=== PATIENT | male | born 1960 | race Caucasian/White ===

== ENCOUNTER 2021-11-06 14:20 | Emergency (ER) | payer BC ==
[2021-11-06 14:41] VITALS: BP 172/100; PULSE 99
== END 2021-11-06 17:46 | disposition home or self-care (01) ==
LOC: JP.ED 14:20
DX: S53.401A Unspecified sprain of right elbow, initial encounter (principal); X50.1XXA Overexertion from prolonged static or awkward postures, initial encounter
CPT/HCPCS: 73080-RT; 99281; 99283

== ENCOUNTER 2024-05-02 06:28 | Day surgery (SDC) | payer MEDICARE, BC ==
[2024-05-02] MEDS: Lactated Ringers 1,000 ML IV SCH (07:03)
[2024-05-02] MEDS ORDERED: Propofol 200 MG/20 ML SDV ONE (07:09)
[2024-05-02] MEDS ORDERED: fentaNYL 100 MCG/2 ML SDV ONE (07:09)
[2024-05-02] MEDS ORDERED: Midazolam 1 MG/ML 2 ML SDV ONE (07:09)
[2024-05-02 11:44] VITALS: BP 137/87; PULSE 64
== END 2024-05-02 09:50 | disposition home or self-care (01) ==
LOC: JP.SDS 06:28
PROVIDERS: ATTEND Family Medicine
DX: Z12.11 Encounter for screening for malignant neoplasm of colon (principal); D12.5 Benign neoplasm of sigmoid colon; K63.5 Polyp of colon; I10 Essential (primary) hypertension; Z80.0 Family history of malignant neoplasm of digestive organs
CPT/HCPCS: 00811; 45380; 45381; 45385; J2250; J2704; J3010; J7120; 88305